=== PATIENT | female | born 1980 | race Caucasian/White ===

== ENCOUNTER 2021-12-25 16:57 | Emergency (ER) | payer MEDICAID, SELFPAY ==
[~2021-12-25] VITALS: Ht 162.6 cm; Wt 81.6 kg
[~2021-12-25 16:57] MED LIST: SERT50TA PO
[2021-12-25 17:05] VITALS: BP_SYST 204
[2021-12-25] MEDS ORDERED: LORazepam 1 MG TABLET PO ONE (23:45)
[2021-12-26 01:23] VITALS: BP_SYST 186
== END 2021-12-26 01:23 | disposition home or self-care (01) ==
LOC: SED 16:57
DX: T62.2X1A Toxic effect of other ingested (parts of) plant(s), accidental (unintentional), initial encounter (principal); H53.149 Visual discomfort, unspecified; R20.0 Anesthesia of skin; R68.2 Dry mouth, unspecified; F41.9 Anxiety disorder, unspecified; Y92.9 Unspecified place or not applicable
CPT/HCPCS: 93005; 99283

== ENCOUNTER 2023-07-13 01:09 | Emergency (ER) | payer MEDICAID ==
[~2023-07-13] VITALS: Ht 162.6 cm; Wt 81.6 kg
[2023-07-13 01:17] VITALS: BP_SYST 122; PULSE 126; RESP 20; TEMP 98.5; O2SAT 98
[2023-07-13] MEDS ORDERED: IBUP-1971 PO (01:42)
[2023-07-13] MEDS ORDERED: KETOROLAC TROMETHAMINE 30 MG VIAL IVP ONE (01:45)
[2023-07-13] MEDS ORDERED: NACL 0.9% 1,000 ML IV ONE (01:45)
[2023-07-13 06:15] VITALS: BP_SYST 116; PULSE 105; RESP 20; TEMP 98.5; O2SAT 99
== END 2023-07-13 06:15 | disposition home or self-care (01) ==
LOC: SED 01:09
DX: S00.83XA Contusion of other part of head, initial encounter (principal); F10.129 Alcohol abuse with intoxication, unspecified; Z79.899 Other long term (current) drug therapy; Y04.8XXA Assault by other bodily force, initial encounter; Y93.89 Activity, other specified; Y92.89 Other specified places as the place of occurrence of the external cause; Y99.8 Other external cause status; Y90.6 Blood alcohol level of 120-199 mg/100 ml
CPT/HCPCS: 99285; 70450; 96374; 96361; 70486; 76376; 81025; J1885; J7030